=== PATIENT | female | born 1965 | race Hispanic/Latino ===

== ENCOUNTER 2023-01-17 17:01 | Emergency (ER) | payer SELFPAY ==
[~2023-01-17] VITALS: Ht 165.1 cm; Wt 72.6 kg
[2023-01-17] MEDS ORDERED: ONDANSETRON HCL INJ 2MG/ML 2ML 2 MG/ML VIAL IV STA ×2 (17:35→21:22)
[2023-01-17] MEDS ORDERED: KETOROLAC TROMETHAMINE 30 MG/ML VIAL IV STA (17:35)
[2023-01-17] MEDS ORDERED: SODIUM CHLORIDE 0.9% 1000ML 1,000 ML IV ONE (17:45)
[2023-01-17 17:57] LABS: BASOPHILS % 0.1 % (0.0-1.0); EOSINOPHILS % 0.2 % (0.0-6.0); HEMATOCRIT 39.9 % (34.2-44.1); HEMOGLOBIN 14.1 g/dL (12.0-16.0); LYMPHOCYTES # (AUTO) 1.4 (1.0-3.2); LYMPHOCYTES % 7.9 % (18.0-39.1); MEAN CORPUSCULAR HEMOGLOBIN 30.4 pg (28-32); MEAN CORPUSCULAR HGB CONC 35.3 g/dL (31-35); MONOCYTES % 5.9 % (4.4-11.3); NEUTROPHILS # (AUTO) 15.1 (2.1-6.9); NEUTROPHILS % 85.3 % (38.7-80.0); PLATELET COUNT 181 x10e3/uL (140-360); RED BLOOD COUNT 4.64 x10e6/uL (3.6-5.1); RED CELL DISTRIBUTION WIDTH 11.9 % (11.7-14.4)
[2023-01-17 18:16] LABS: ALBUMIN 3.6 g/dL (3.5-5.0); ALBUMIN/GLOBULIN RATIO 1.1 (0.8-2.0); ANION GAP 16.3 mmol/L (8-16); CALCIUM 9.7 mg/dL (8.4-10.2); CREATININE, SERUM 0.81 mg/dL (0.57-1.11); POTASSIUM 3.3 mmol/L (3.5-5.1)
[2023-01-17 18:19] LABS: CLARITY,URINE HAZY (CLEAR); COLOR,URINE ORANGE (YELLOW); KETONES,URINE 1+ (NEGATIVE); LEUKOCYTE ESTERASE ,URINE LARGE (NEGATIVE); NITRITE,URINE NEGATIVE (NEGATIVE); PROTEIN,URINE DIPSTICK 1+ (NEGATIVE); URINE UROBILINOGEN 0.2 mg/dL (0.2 - 1)
[2023-01-17 18:21] LABS: BACTERIA,URINE MODERATE /HPF; EPITHELIAL CELLS,URINE MODERATE /LPF; RBC,URINE 21-50 /HPF (0-5); WBC,URINE (MAN) >50 /HPF (0-5)
[2023-01-17 21:23] VITALS: BP 146/81; PULSE 79; RESP 18; TEMP 98.6; O2SAT 100
[2023-01-17] MEDS ORDERED: Morphine 4mg INJECTION 4 MG/ML INJ ONE (21:26)
[2023-01-17] MEDS ORDERED: ONDANSETRON HCL INJ 2MG/ML 2ML 2 MG/ML VIAL ONE (21:27)
[2023-01-17] MEDS ORDERED: Morphine 4mg INJECTION 4 MG/ML INJ IV ONE (21:30)
== END 2023-01-17 21:42 | disposition other institution (70) ==
LOC: ER 17:36
DX: N13.2 Hydronephrosis with renal and ureteral calculous obstruction (principal); N39.0 Urinary tract infection, site not specified; I10 Essential (primary) hypertension; E11.9 Type 2 diabetes mellitus without complications
CPT/HCPCS: 36415; 74176; 80053; 81001; 85025; 87086; 99284; J0696; J1885; J2270; J2405; J7030; U0002